=== PATIENT | female | born 1955 | race Caucasian/White ===

== ENCOUNTER 2016-07-03 10:01 | Emergency (ER) | payer MEDICAID ==
[~2016-07-03] VITALS: Ht 162.6 cm; Wt 56.7 kg
[2016-07-03 10:29] VITALS: BP 125/62
== END 2016-07-03 10:57 | disposition home or self-care (01) ==
LOC: ER 10:01
DX: J20.9 Acute bronchitis, unspecified (principal); J45.909 Unspecified asthma, uncomplicated

== ENCOUNTER 2018-06-04 10:04 | Emergency (ER) | payer MEDICAID ==
[~2018-06-04] VITALS: Ht 157.5 cm; Wt 55.3 kg
[2018-06-04 11:26] VITALS: BP 128/84
[2018-06-04] MEDS ORDERED: methylPREDNISolone SOD SUCC 125 MG/2 ML VL IM ONE (11:45)
[2018-06-04] MEDS ORDERED: ALBUTEROL SULF 2.5 MG/0.5ML(0.5%) NEB SOLN NEB ONE (11:45)
[2018-06-04] MEDS ORDERED: IPRATROPIUM BROM 0.5 MG/2.5ML INH SOL NEB ONE (11:45)
== END 2018-06-04 12:34 | disposition home or self-care (01) ==
LOC: ER 10:05
DX: J44.9 Chronic obstructive pulmonary disease, unspecified (principal); I50.9 Heart failure, unspecified
CPT/HCPCS: 71046; 94640; 96372; 99283; J2930; J7611; J7644

== ENCOUNTER 2018-08-24 14:22 | Emergency (ER) | payer MEDICAID ==
[~2018-08-24] VITALS: Ht 165.1 cm; Wt 61.2 kg
[2018-08-24] MEDS ORDERED: TETANUS-DIPTH-ACEL PERTUSSIS 0.5ML SYRG IM ONE (15:45)
[2018-08-24] MEDS ORDERED: HYDROcodone-ACET 5/325MG TAB PO ONE (15:45)
[2018-08-24] MEDS ORDERED: MORPHINE SULFATE 4 MG/ML SYR/VIAL IV ONE (16:30)
[2018-08-24] MEDS ORDERED: ONDANSETRON HCL 4 MG/2 ML VIAL IV ONE (16:30)
[2018-08-24] MEDS ORDERED: cefTRIAXone 1GM/50ML D5W 50 ML IV ONE (16:45)
[2018-08-24] MEDS ORDERED: PROMETHAZINE HCL 25 MG/ML 1ML IV ONE (19:00)
[2018-08-24 19:25] VITALS: BP 132/73
== END 2018-08-24 19:55 | disposition short-term general hospital (02) ==
LOC: ER 14:22 → EDBD 14:22 → ER 19:55
DX: S02.40EA Zygomatic fracture, right side, initial encounter for closed fracture (principal); S52.91XA Unspecified fracture of right forearm, initial encounter for closed fracture; S02.81XA Fracture of other specified skull and facial bones, right side, initial encounter for closed fracture; S01.111A Laceration without foreign body of right eyelid and periocular area, initial encounter; J44.9 Chronic obstructive pulmonary disease, unspecified; E07.9 Disorder of thyroid, unspecified; Z87.891 Personal history of nicotine dependence; W01.198A Fall on same level from slipping, tripping and stumbling with subsequent striking against other object, initial encounter; Y93.01 Activity, walking, marching and hiking; Y99.8 Other external cause status; Y92.481 Parking lot as the place of occurrence of the external cause
CPT/HCPCS: 70450; 70486; 71045; 72125; 73110; 90471; 90715; 96365; 96375; 99291; J0696; J2270; J2405; J2550

== ENCOUNTER 2018-09-01 08:56 | Inpatient (IN) | payer MEDICAID ==
[~2018-09-01] VITALS: Ht 157.5 cm; Wt 57.1 kg
--- NOTE | 2018-09-01 00:31 | NUR ---
TELE admit from [facility] admitted to tele. NO SBAR received. Patient oriented to DEMAR guerrero RN,room 285 bed A, and unit policies regarding patient care and visiting hours. Patient weighed by bedscale and encouraged to call if they need something. All questions and concerns addressed, patient verbalized understanding. Note: PATIENT IS A/O X4, BP 112/65, P 58, R 22, 97.8, 92% O2 ON 2 L NC. EXPIRATORY WHEEZES AND TACHYPNEA NOTED WELL A WET COUGH. PATIENT HAS BRUISING TO THE FACE AND REPORTS 3 FACIAL FRACTURES FROM A FALL THAT OCCURRED LAST SATURDAY AT HOME. SHE ALSO HAS STITCHES ABOVE THE RIGHT EYE FROM THIS FALL. SHE STATES THAT SHE GOT THE STITCHES HERE AT [facility] AND THEY HAVE BEEN IN SINCE LAST SATURDAY. SHE ALSO HAS A WRAP TO THE RIGHT ARM AND STATES THAT SHE JUST GOT HER CAST OFF AT [facility]. SHE ACQUIRED A BROKEN ARM FROM A FALL THAT SHE HAD "A FEW MONTHS BACK,". SHE HAS NO TEETH AND NO DENTURES HERE OR AT HOME. SHE STATES THAT SHE HAS NOT MADE IT THE DENTIST TO THEM. BED IS LOW, LOCKED, AND CALL LIGHT IS IN REACH. WILL CONTINUE TO MONITOR.
[2018-09-01 10:13] LABS: Basophils # (auto) 0 uL; Basophils % (auto) 0.4 % (0.0-2.0); Eosinophils # (auto) 0.1 uL; Eosinophils % (auto) 0.7 % (0.0-7.0); Hematocrit 45.3 % (36.0-46.0); Hemoglobin 14.8 g/dL (12.2-16.2); Lymphocytes # (auto) 2.2 uL; Lymphocytes % (auto) 25.4 % (10.0-50.0); Mean Corpuscular Hemoglobin 29.7 pg (28.0-32.0); Mean Corpuscular Hgb Conc. 32.7 g/dL (32.0-36.0); Mean Corpuscular Volume 90.7 fL (80.0-100.0); Monocytes # (auto) 0.9 uL; Monocytes % (auto) 10.8 % (0.0-12.0); Neutrophils # (auto) 5.3 uL; Neutrophils % (auto) 62.7 % (37.0-80.0); Nucleated Red Blood Cells % 0.2 %; Platelet Count (auto) 183 10^3/uL (140-450); Red Cell Distribution Width 16.2 % (11.8-14.3); White Blood Cell 8.5 10^3/uL (4.4-10.8)
[2018-09-01] MEDS ORDERED: ASPirin 81 mg TAB PO ONE (10:30)
[2018-09-01 10:32] LABS: Albumin 2.9 g/dL (3.4-5.0); BUN/Creatinine Ratio 13.3; Calcium 8.2 mg/dL (8.5-10.1)
[2018-09-01 10:37] LABS: Bilirubin, Total 0.7 mg/dL (0.2-1.0); Total Protein 7.7 g/dL (6.4-8.2)
[2018-09-01 10:44] LABS: Potassium 2.5 mmol/L (3.5-5.1)
[2018-09-01] MEDS ORDERED: POTASSIUM CHL 10% (20 MEQ/15ML) 15ml ORAL SOLN PO ONE (11:15)
[2018-09-01] MEDS ORDERED: MORPHINE SULF INJ 2 MG/ML SYRINGE 1ML IV PRN (14:30)
[2018-09-01] MEDS ORDERED: NITROGLYCERIN 0.4 MG SL TAB SL PRN (14:30)
[2018-09-01 15:22] LABS: Free T3 1.69 pg/mL (2.3-4.2); Free T4 (Free Thyroxine) 1.33 ng/dL (0.89-1.76)
[2018-09-01] MEDS: POTASSIUM CHL 20MEQ/100ML 100 ML IV SCH ×2 (15:26→16:51)
[2018-09-01] MEDS: HYDROcodone-ACET 5/325MG TAB PO PRN (19:02)
[2018-09-01 22:06] VITALS: BP 112/65
[2018-09-01] MEDS: METOPROLOL TARTRATE 25 MG TAB PO SCH (22:06)
[2018-09-01] MEDS: MONTELUKAST SODIUM 10 MG TAB PO SCH (22:07)
[2018-09-01] MEDS: FAMOTIDINE 20 MG TAB PO SCH (22:07)
[2018-09-01] MEDS: METHIMAZOLE 5 MG TAB PO SCH (22:08)
[2018-09-01 22:09] VITALS: BP 112/65
[2018-09-02] MEDS: MORPHINE SULFATE 4 MG/ML SYR/VIAL IV PRN ×5 (00:21→21:58)
--- NOTE | 2018-09-02 01:16 | NUR ---
MED REC PATIENT STATES THAT SHE BROUGHT IN A LIST OF HER CURRENT MEDICATIONS, BUT THAT SOMEONE ONE IN ER TOOK IT TO SHOW THE DR. PATIENTS ER NURSE STATES THAT SHE NEVER HAD A LIST. PATIENT WILL TRY TO BRING IN ANOTHER LIST.
[2018-09-02 02:28] LABS: Urine Amorphous Crystal FEW /hpf (None Seen); Urine Bacteria FEW /hpf (None Seen); Urine Blood Negative /uL (Negative); Urine Mucus FEW (None Seen); Urine Specific Gravity 1.016 (1.001-1.035); Urine WBC 2 /hpf (0 - 5)
[2018-09-02] MEDS: HYDROcodone-ACET 5/325MG TAB PO PRN (04:24)
[2018-09-02 04:55] VITALS: BP 104/59
[2018-09-02] MEDS: METHIMAZOLE 5 MG TAB PO SCH ×3 (05:34→21:57)
--- NOTE | 2018-09-02 07:00 | NUR ---
CLOSING NOTE PATIENT IS A/O X4 WITH EVEN AND UNLABORED RESPIRATIONS NOTED. NO S/S OF DISTRESS OF PAIN AT THIS TIME. BED IS LOW, LOCKED, LOCKED, AND CALL LIGHT IS IN REACH. CARE TRANSFERRED TO DAY SHIFT RN.
[2018-09-02 07:05] LABS: Calcium 8.1 mg/dL (8.5-10.1); Potassium 3.2 mmol/L (3.5-5.1)
[2018-09-02 07:08] LABS: BUN/Creatinine Ratio 16.9
--- NOTE | 2018-09-02 07:25 | NUR ---
Open Shift Note Received report on patient, awake and sitting up in bed. Patient shows no signs of distress or SOB at this time. Discussed POC. Bed in lowest locked position, side rails up x2, and call light within reach. Will continue to monitor.
[2018-09-02 08:30] VITALS: BP 106/57
[2018-09-02] MEDS: METOPROLOL TARTRATE 25 MG TAB PO SCH ×2 (10:00→21:57)
[2018-09-02] MEDS: BUMETANIDE 1 MG TAB PO SCH (10:11)
[2018-09-02] MEDS: POTASSIUM CHL 20 Meq TABLET PO SCH (10:11)
[2018-09-02] MEDS: FAMOTIDINE 20 MG TAB PO SCH ×2 (10:12→21:57)
--- NOTE | 2018-09-02 11:40 | NUR ---
Dr Bond at Bedside Dr Bond at patient bedside.
[2018-09-02] MEDS ORDERED: POTASSIUM CHL 20 Meq TABLET PO ONE (11:45)
[2018-09-02] MEDS ORDERED: BUMETANIDE (0.25MG/ML) 4 ML VIAL IV ONE (11:45)
[2018-09-02 12:30] VITALS: BP 111/67
[2018-09-02 16:22] VITALS: BP 105/65
[2018-09-02] MEDS ORDERED: AMIO200T33 PO (19:37)
[2018-09-02] MEDS ORDERED: MONT10TA34 PO (19:37)
[2018-09-02] MEDS ORDERED: DIPH25CA46 PO (19:37)
[2018-09-02] MEDS ORDERED: METH10TA6 PO (19:37)
[2018-09-02] MEDS ORDERED: HYDR-4683 PO (19:37)
[2018-09-02] MEDS ORDERED: MIRT15TA3 PO (19:37)
[2018-09-02] MEDS ORDERED: AMOX250C3 PO (19:37)
[2018-09-02] MEDS ORDERED: FAMO-12 PO (19:37)
[2018-09-02] MEDS ORDERED: POTA10TA79 PO (19:37)
[2018-09-02] MEDS ORDERED: BUME1TAB PO (19:37)
[2018-09-02] MEDS ORDERED: METO25TA5 PO (19:37)
--- NOTE | 2018-09-02 19:40 | NUR ---
Opening Shift Note Assumed care of patient, awake and alert. No S/S of distress/SOB or pain. Instructed on POC and to call for assist PRN. Bed in lowest locked position, call light within reach, side rails up x2, fall precautions in place. Will continue to monitor for changes Q1hr and PRN.
[2018-09-02] MEDS: MONTELUKAST SODIUM 10 MG TAB PO SCH (21:57)
[2018-09-02 22:00] VITALS: BP 109/54
[2018-09-03] MEDS: MORPHINE SULFATE 4 MG/ML SYR/VIAL IV PRN ×5 (02:31→20:11)
[2018-09-03 05:04] VITALS: BP 98/55
[2018-09-03] MEDS: METHIMAZOLE 5 MG TAB PO SCH ×3 (06:28→21:46)
[2018-09-03 07:28] LABS: Calcium 7.8 mg/dL (8.5-10.1)
--- NOTE | 2018-09-03 07:31 | NUR ---
patient is alert and oriented x4 with no distress noted, lying in bed with hob in rossi position, right arm in elevated on a pillow, she verbalized it causes her pain when she moved right arm, dressing is c-d-i, fingers warm to the touch, sensation intact. bruises noted to and above right eye, was repositioned. she verbalized shes comfortable at this time.
[2018-09-03 07:35] LABS: BUN/Creatinine Ratio 16.9
[2018-09-03 07:42] LABS: Potassium 2.8 mmol/L (3.5-5.1)
[2018-09-03] MEDS: BUMETANIDE 1 MG TAB PO SCH (07:53)
[2018-09-03] MEDS: POTASSIUM CHL 20 Meq TABLET PO SCH (07:53)
[2018-09-03] MEDS: FAMOTIDINE 20 MG TAB PO SCH ×2 (07:53→21:45)
[2018-09-03] MEDS: METOPROLOL TARTRATE 25 MG TAB PO SCH ×2 (07:55→21:46)
--- NOTE | 2018-09-03 07:55 | NUR ---
i received a critical on potassium 2.8, i gave the 20meq po as ordered, paged physician, waiting for call back, heart is sinus rhythm, denies chest pain.
[2018-09-03 08:43] VITALS: BP 99/56
[2018-09-03] MEDS ORDERED: POTASSIUM CHL 20 Meq TABLET PO STA (11:12)
--- NOTE | 2018-09-03 11:15 | NUR ---
dr fadi andino/ cardio was called and texted the information for consult.
[2018-09-03] MEDS ORDERED: IBUPROFEN 600 MG TAB PO PRN (11:45)
[2018-09-03 12:03] VITALS: BP 93/56
--- NOTE | 2018-09-03 12:16 | NUR ---
Nutrition Assessment/consult Notes please see attached link for complete assessment Est. Needs BW [id number] kcal (25-30 kcal/kgBW), 57-68 gms pro (1.0-1.2 gms/kgBW). Will continue to monitor pertinent labs and reassess nutrient need prn Addendum: 09/03/18 at [address] Amended: Links added.
[2018-09-03 16:58] VITALS: BP 91/54
--- NOTE | 2018-09-03 19:50 | NUR ---
Opening Shift Note Assumed care of patient, awake and alert. No S/S of distress/SOB. Instructed on POC and to call for assist PRN. Bed in lowest locked position, call light within reach, side rails up x2, fall precautions in place. Will continue to monitor for changes Q1hr and PRN.
[2018-09-03] MEDS: MONTELUKAST SODIUM 10 MG TAB PO SCH (21:45)
[2018-09-03 22:00] VITALS: BP 106/51
[2018-09-04] MEDS: MORPHINE SULFATE 4 MG/ML SYR/VIAL IV PRN ×6 (01:04→23:07)
[2018-09-04 05:00] VITALS: BP 98/62
[2018-09-04] MEDS: METHIMAZOLE 5 MG TAB PO SCH ×3 (06:00→23:11)
[2018-09-04 06:21] LABS: Potassium 3.2 mmol/L (3.5-5.1)
[2018-09-04 06:31] LABS: BUN/Creatinine Ratio 17.9; Calcium 7.9 mg/dL (8.5-10.1); Magnesium 1.7 mg/dL (1.6-2.6)
--- NOTE | 2018-09-04 07:30 | NUR ---
OPENING NOTE The patient is received alert and oriented times four with no SOB or s/s of distress at this time. The patient is resting in bed in the lowest position with call light within reach, will continue to monitor and POC.
[2018-09-04 08:37] VITALS: BP 106/84
--- NOTE | 2018-09-04 09:12 | NUR ---
PATENT LEGAL ASSISTANT CALLED Dr. Nette Pope is called and updated on the patient's status. Dr. Nette Pope places orders via telephone with read back, will continue POC.
[2018-09-04] MEDS: BUMETANIDE 1 MG TAB PO SCH (09:39)
[2018-09-04] MEDS: POTASSIUM CHL 20 Meq TABLET PO SCH (09:40)
[2018-09-04] MEDS: FAMOTIDINE 20 MG TAB PO SCH ×2 (09:40→23:11)
[2018-09-04] MEDS: METOPROLOL TARTRATE 25 MG TAB PO SCH ×2 (09:40→22:00)
[2018-09-04] MEDS: ONDANSETRON HCL 4 MG/2 ML VIAL IV PRN ×2 (09:41→17:58)
[2018-09-04] MEDS ORDERED: ADENOSINE 48 MG in GIVE UN-DILUTED 0 ML IV STA (10:03)
[2018-09-04 11:00] VITALS: BP 128/55
[2018-09-04 12:39] VITALS: BP 117/62
--- NOTE | 2018-09-04 13:13 | NUR ---
PATIENT RECEIVED FROM ICU The patient is received alert and oriented times zero and responsive to verbal stimuli with no SOB or s/s of distress at this time. The patient is resting in bed in the lowest position with sitter and family bedside. Will continue to monitor and POC. Addendum: 09/04/18 at 1349 by CALEB HUITRON RN Disregard wrong patient.
--- NOTE | 2018-09-04 14:30 | NUR ---
HOSPITALIST BEDSIDE Dr. Ewing is bedside and updates the patient on the POC.
[2018-09-04] MEDS ORDERED: POTASSIUM CHL 20 Meq TABLET PO ONE (15:30)
[2018-09-04] MEDS ORDERED: MAGNESIUM SULFATE 1GM/100ML 100 ML IV ONE (15:30)
[2018-09-04 16:17] VITALS: BP 106/54
--- NOTE | 2018-09-04 16:30 | NUR ---
Rounds Patient awake and alert. No S/S of distress/SOB or pain. Will continue to monitor changes q1hr and PRN.
--- NOTE | 2018-09-04 19:53 | NUR ---
RECEIVED PT FROM DAY RN POC REVIEWED
[2018-09-04] MEDS: MONTELUKAST SODIUM 10 MG TAB PO SCH (23:13)
[2018-09-04 23:27] VITALS: BP 93/50
--- NOTE | 2018-09-05 01:18 | NUR ---
resting with eyes closed bed qlarm intact call light within reach
[2018-09-05] MEDS: MORPHINE SULFATE 4 MG/ML SYR/VIAL IV PRN ×4 (03:10→22:06)
[2018-09-05 05:34] VITALS: BP 111/67
[2018-09-05] MEDS: METHIMAZOLE 5 MG TAB PO SCH ×3 (06:45→20:20)
--- NOTE | 2018-09-05 06:46 | NUR ---
awoke up to bsc resp even and unlabored,
--- NOTE | 2018-09-05 06:54 | NUR ---
report given to am nurse poc reviewed
[2018-09-05 07:09] LABS: Potassium 3.6 mmol/L (3.5-5.1)
[2018-09-05 07:11] LABS: Magnesium 2.2 mg/dL (1.6-2.6)
[2018-09-05 09:00] VITALS: BP 92/52
[2018-09-05] MEDS: METOPROLOL TARTRATE 25 MG TAB PO SCH ×4 (09:41→09:48)
[2018-09-05] MEDS: BUMETANIDE 1 MG TAB PO SCH (09:42)
[2018-09-05] MEDS: FAMOTIDINE 20 MG TAB PO SCH ×2 (09:42→20:20)
[2018-09-05] MEDS: POTASSIUM CHL 20 Meq TABLET PO SCH (09:44)
[2018-09-05 13:00] VITALS: BP 101/56
[2018-09-05 16:48] VITALS: BP 118/65
[2018-09-05 18:21] VITALS: BP 110/59
--- NOTE | 2018-09-05 20:10 | NUR ---
i spoke with dr Ewing and Dr Dr Da Silva say is ok to DC the patient //Josse RN
[2018-09-05] MEDS: MONTELUKAST SODIUM 10 MG TAB PO SCH (20:20)
[2018-09-05] MEDS: HYDROcodone-ACET 5/325MG TAB PO PRN (20:21)
--- NOTE | 2018-09-05 20:33 | NUR ---
PATIENT HAS ORDERS TO DISCHARGE HOME WITH HOME HEALTH, PATIENT SAFETY, AND [employer]. PATIENT LIVES ALONE FAMILY LIVES IN [place]. PATIENT IS UNABLE TO TAKE TAXI TO GO HOME PATIENT INJURED HER RIGHT ARM AND HAS CAST AND UNABLE TO AMBULATE WITH WALKER. CHARGE NURSE MADE AWARE. CALLED HOSPITALIST TO INFORM PATIENT STATUS. AWAITING CALL BACK.
[2018-09-05 23:03] VITALS: BP 126/71
[2018-09-06] MEDS: MORPHINE SULFATE 4 MG/ML SYR/VIAL IV PRN (01:50)
[2018-09-06 05:06] VITALS: BP 108/63
[2018-09-06] MEDS: METHIMAZOLE 5 MG TAB PO SCH ×2 (05:13→15:27)
[2018-09-06] MEDS: HYDROcodone-ACET 5/325MG TAB PO PRN ×2 (05:14→12:55)
--- NOTE | 2018-09-06 07:22 | NUR ---
Opening Shift Note Assumed care of patient, awake and alert. No S/S of distress/SOB or pain. Instructed on POC and to call for assist PRN, will continue to monitor for changes Q1hr and PRN.
--- NOTE | 2018-09-06 08:08 | NUR ---
Patient has her own walker at bedside. Patient ambulates independently with walker.
--- NOTE | 2018-09-06 08:11 | NUR ---
Paged on-call neonatal social worker Nora Rangel regarding discharge and home health order. Awaiting call back.
--- NOTE | 2018-09-06 08:46 | NUR ---
Requested clinicals faxed to [facility] health agencies.
[2018-09-06 09:00] VITALS: BP 124/61
--- NOTE | 2018-09-06 09:12 | NUR ---
Patient states she has home oxygen in the wall and a portable oxygen tank at home.
[2018-09-06] MEDS: BUMETANIDE 1 MG TAB PO SCH (10:32)
[2018-09-06] MEDS: FAMOTIDINE 20 MG TAB PO SCH (10:32)
[2018-09-06] MEDS: POTASSIUM CHL 20 Meq TABLET PO SCH (10:32)
[2018-09-06] MEDS: METOPROLOL TARTRATE 25 MG TAB PO SCH (10:34)
--- NOTE | 2018-09-06 10:49 | NUR ---
Spoke with [facility]. Patient is accepted into home health. [facility] needs authorization number. Paged case investigator Nora Rangel. Awaiting call back.
--- NOTE | 2018-09-06 10:56 | NUR ---
Spoke with Nora Rangel. She is calling [facility] for an authorization number for home health. Awaiting call back.
--- NOTE | 2018-09-06 11:30 | NUR ---
o/c note: Primary RN Ciara called asked about HH for pt since there were no notes for HH. Instructed Ciara to fax to [facility]. Ciara called back to inform me [facility] accepted pt. I called o/c CM for [facility] and had to leave message to send auth the [facility]
--- NOTE | 2018-09-06 11:58 | NUR ---
Blanca Urbina to fax packet to [facility] (fax # [phone]) and they will also send auth to [facility]
--- NOTE | 2018-09-06 12:02 | NUR ---
Requested clinicals faxed to [facility].
--- NOTE | 2018-09-06 12:03 | NUR ---
EKG obtained due to abnormal telemetry reading. Patient is asymptomatic and denies CP, SOB, s/s of distress. EKG shown to Dr. Mcmullen. Per , patient has normal coronaries. No new orders given. Will continue to monitor patient. Addendum: 09/06/18 at 1410 by CATIA CHU RN wrong patient
--- NOTE | 2018-09-06 12:36 | NUR ---
Dr. Ferreira ordered oxygen to be monitored on RA. On RA patient saturated 84-96%. No distress noted. Dr. Ferreira paged.
[2018-09-06 13:00] VITALS: BP 103/56
--- NOTE | 2018-09-06 13:55 | NUR ---
Paged Dr. Pope regarding clearance for discharge.
--- NOTE | 2018-09-06 14:13 | NUR ---
Spoke with DIMPLE Rangel. [facility] accepted patient and will start care in 24-48 hours. Patient can be discharged from social service standpoint.
--- NOTE | 2018-09-06 14:35 | NUR ---
Spoke with Dr. Ferreira. Patient can be discharged if home oxygen arrives.
--- NOTE | 2018-09-06 14:37 | NUR ---
Paged Dr. Pope to clear patient for discharge. Awaiting call back.
[2018-09-06 15:02] VITALS: BP 103/56
[2018-09-06 16:56] VITALS: BP 113/61
--- NOTE | 2018-09-06 17:08 | NUR ---
Spoke with Dr. Pope. MD cleared patient for discharge. Spoke with MD regarding patient's bradycardia after medications. Patient is asymptomatic. Continue with discharge.
--- NOTE | 2018-09-06 18:42 | NUR ---
Patient's ride contact information [phone] ([place]enzie)
--- NOTE | 2018-09-06 18:43 | NUR ---
Patient's home oxygen information Company is [facility]. Phone number is [phone].
--- NOTE | 2018-09-06 19:23 | NUR ---
Discharge instructions given as ordered. Encourage to follow up with PMD as instructed. All questions and concerns addressed. Patient verbalized understanding. Medication reconciliation form completed and copy given to patient. Patient denies Home medications held in Pharmacy. IV removed with catheter intact, pressure dressing applied. Patient taken to vehicle via wheelchair with all personal belongings, accompanied by staff and family member. No distress noted at time of departure. Patient's family brought in portable home oxygen. Patient left with oxygen and walker.
== END 2018-09-06 19:28 | disposition home health service (06) | DRG 194 ==
LOC: ER 08:56 → TELE 14:27 → TELE-WESTW 20:28
PROVIDERS: ADMIT Internal Medicine; ATTEND Internal Medicine
DX: I13.0 Hypertensive heart and chronic kidney disease with heart failure and stage 1 through stage 4 chronic kidney disease, or unspecified chronic kidney disease (principal); J96.20 Acute and chronic respiratory failure, unspecified whether with hypoxia or hypercapnia; N17.0 Acute kidney failure with tubular necrosis; I50.43 Acute on chronic combined systolic (congestive) and diastolic (congestive) heart failure; J44.9 Chronic obstructive pulmonary disease, unspecified; N18.3 Chronic kidney disease, stage 3 (moderate); E05.90 Thyrotoxicosis, unspecified without thyrotoxic crisis or storm; E03.9 Hypothyroidism, unspecified; R07.89 Other chest pain; E87.6 Hypokalemia; S00.83XA Contusion of other part of head, initial encounter; W18.39XA Other fall on same level, initial encounter; Y93.89 Activity, other specified; Z87.891 Personal history of nicotine dependence; Z95.2 Presence of prosthetic heart valve; Z99.81 Dependence on supplemental oxygen; Y92.89 Other specified places as the place of occurrence of the external cause; Y99.8 Other external cause status
CPT/HCPCS: 36415; 36600; 71046; 71111; 78452; 80048; 80053; 81001; 82805; 83735; 83880; 84132; 84439; 84443; 84481; 84484; 85025; 87081; 87493; 93005; 93017; 93306; 96365; 96366; 97163; G0378; J0153; J2405; J3480